=== PATIENT | female | born 1975 | race Caucasian/White ===

== ENCOUNTER 2018-06-21 19:56 | Emergency (ER) | payer BC, OTHER ==
[~2018-06-21] VITALS: Ht 167.6 cm; Wt 110.0 kg
[2018-06-21 21:15] LABS: BASOPHILS # (AUTO) 0.04 x10^3/uL (0-0.1); BASOPHILS % (AUTO) 1 % (0-1); EOSINOPHILS # (AUTO) 0.15 x10^3/uL (0-0.4); EOSINOPHILS % (AUTO) 3 % (1-7); LYMPHOCYTES # (AUTO) 1.79 x10^3/uL (1-3.4); LYMPHOCYTES % (AUTO) 32 % (22-44); MD NO; MEAN CORPUSCULAR HEMOGLOBIN 32.7 pg (27.0-34.8); MEAN CORPUSCULAR HGB CONC 33.6 g/dL (32.4-35.8); MEAN CORPUSCULAR VOLUME 97.5 fL (80-100); MEAN PLATELET VOLUME 7.1 fL (7.4-10.4); MONOCYTES # (AUTO) 0.37 x10^3/uL (0.2-0.8); MONOCYTES % (AUTO) 7 % (2-9); NEUTROPHILS # (AUTO) 3.34 x10^3/uL (1.8-6.8); NEUTROPHILS % (AUTO) 59 % (42-75); PLATELET COUNT 192 x10^3/uL (130-400); RED BLOOD COUNT 3.92 x10^6/uL (3.82-5.3); RED CELL DISTRIBUTION WIDTH 15.2 % (9.6-15.2)
[2018-06-21] MEDS ORDERED: BUDE10.2 INH (21:15)
[2018-06-21] MEDS ORDERED: LEVA15HF4 INH (21:15)
[2018-06-21] MEDS ORDERED: DIPH25CA61 PO (21:15)
[2018-06-21 21:25] LABS: ALBUMIN 3.6 g/dL (3.4-5.0); ANION GAP 5 mmol/L (5-15); CALCIUM 8.6 mg/dL (8.5-10.1); CHLORIDE 111 mmol/L (98-107); CREATININE 0.69 mg/dL (0.55-1.02)
[2018-06-21 21:28] LABS: TROPONIN I < 0.015 ng/mL (0.000-0.045)
[2018-06-21] MEDS ORDERED: TRAZ-137 PO (22:12)
[2018-06-21 22:35] LABS: RAPID INFLUENZA A Negative (Negative); RAPID INFLUENZA B Negative (Negative)
--- NOTE | 2018-06-21 22:37 | NUR ---
IV STARTED. PT ON CARDIAC AND VITALS MONITORS. PT AWARE OF CURRENT CARE PLAN. WILL CONTINUE TO MONITOR.
[2018-06-21] MEDS ORDERED: OMNIPAQUE 350 MG/ML, 100ML BOTTLE ONE (23:13)
--- NOTE | 2018-06-21 23:40 | NUR ---
PT RESTING IN BED. NO STATED COMPLAINTS AT THIS TIME. VSS.
--- NOTE | 2018-06-22 00:21 | NUR ---
PT RESTING IN BED CALMLY WITH EYES CLOSED. RESP EVEN. PT AN MTF.
[2018-06-22 01:26] VITALS: BP 113/70
== END 2018-06-22 01:33 | disposition home or self-care (01) ==
LOC: ED 06-22 01:27
DX: R55 Syncope and collapse (principal); F10.129 Alcohol abuse with intoxication, unspecified; F17.200 Nicotine dependence, unspecified, uncomplicated
CPT/HCPCS: 36415; 71046; 71275; 80048; 80307; 82040; 84443; 84484; 84702; 85025; 87081; 87400; 87880; 93005; 99284; Q9967